=== PATIENT | male | born 1980 | race Caucasian/White ===

== ENCOUNTER 2020-10-08 08:37 | Outpatient (CLI) | payer BC | END 2020-10-08 08:38 | disposition home or self-care (01) | LOC: DTY/OP 08:37 | PROVIDERS: ATTEND Surgery | DX: E66.01 Morbid (severe) obesity due to excess calories (principal) | CPT/HCPCS: 97802 ==

== ENCOUNTER 2020-12-04 07:06 | Outpatient (CLI) | payer BC ==
[2020-12-04 08:14] LABS: #Basophils 0.1 10x3/uL (0.0-0.2); #Eosinphils 0.1 10x3/uL (0.0-0.5); #Monocytes 0.6 10x3/uL (0.0-1.1); #Neutrophils 4.1 10x3/uL (1.5-8.4); %Basophils 0.7 % (0.0-2.0); %Eosinophils 1.5 % (0.0-6.0); %Lymphocytes 33.5 % (18.0-47.0); %Monocytes 8.1 % (0.0-10.0); %Neutrophils 56.1 % (40.0-75.0); Hemoglobin 15.4 g/dL (13.5-17.5); Mean Corpuscular HGB CONC 34.1 g/dL (32.0-36.0); Mean Corpuscular Hemoglobin 28.9 pg (27.0-33.0); Mean Corpuscular Volume 84.8 fl (81.2-95.1); Mean Platelet Volume 10.3 fl (7.4-10.4); Platelet Count 291 10x3/uL (150-450); RBC Distribution Width 12.6 % (11.5-14.5); Red Blood Cell (RBC) Count 5.32 10x6/uL (4.32-5.72); White Blood Cell (WBC) Count 7.3 10x3/uL (3.5-10.5)
[2020-12-04 09:06] LABS: ALT (SGPT) 38 U/L (8-55); AST (SGOT) 28 U/L (5-34); Albumin 4.5 g/dL (3.5-5.0); Alkaline Phosphatase 69 U/L (40-110); Anion Gap 17 mmol/L (10-20); BUN (Urea Nitrogen) 18 mg/dL (8.9-20.6); Bilirubin, Total 0.8 mg/dL (0.2-1.2); Calc. Creatinine Clearance 0 mL/min (70-130); Calcium 9.8 mg/dL (7.8-10.44); Carbon Dioxide 23 mmol/L (22-29); Chloride 105 mmol/L (98-107); Globulin 2.8 g/dL (2.4-3.5); Glucose 93 mg/dL (70-105); Potassium 4.3 mmol/L (3.5-5.1); Protein, Total 7.3 g/dL (6.0-8.3); Sodium 141 mmol/L (136-145)
== END 2020-12-04 07:07 | disposition home or self-care (01) ==
LOC: LABBT 07:06
PROVIDERS: ATTEND Surgery
DX: Z01.818 Encounter for other preprocedural examination (principal); E66.01 Morbid (severe) obesity due to excess calories; Z20.822 Contact with and (suspected) exposure to COVID-19
CPT/HCPCS: 71046; 80053; 83036; 85025; 93005; 93010

== ENCOUNTER 2020-12-04 07:15 | Inpatient (IN) | payer BC ==
[2020-12-09] MEDS ORDERED: Heparin 5,000 UNITS/ML VIAL ONE (06:29)
[2020-12-09] MEDS ORDERED: SUGAMMADEX SODIUM 500 MG/5 ML VIAL ONE (06:31)
[2020-12-09] MEDS ORDERED: Fentanyl 250 MCG/5 ML VIAL ONE (06:31)
[2020-12-09] MEDS ORDERED: Lidocaine 1% w/Epinephrine 1:100K 20 ML VIAL ONE (06:33)
[2020-12-09] MEDS ORDERED: Bupivacaine 0.25% HCL 30 ML VIAL ONE (06:33)
[2020-12-09] MEDS ORDERED: PROPOFOL 20 ML ONE (07:08)
[2020-12-09] MEDS ORDERED: Dexamethasone 20 MG/5 ML VIAL ONE (07:36)
[2020-12-09] MEDS ORDERED: Ondansetron PF 4 MG/2 ML Vial ONE (07:36)
[2020-12-09] MEDS ORDERED: Ketorolac Tromethamine 30 MG/ML VIAL ONE (07:36)
[2020-12-09] MEDS ORDERED: Rocuronium Bromide 10 MG/ML (10ML VIAL) ONE (07:36)
[2020-12-09] MEDS ORDERED: Glycopyrrolate 0.2 MG/ML 5 ML SYRINGE ONE (07:36)
[2020-12-09] MEDS ORDERED: PROPOFOL 200 MG/20 ML VIAL ONE (07:36)
[2020-12-09] MEDS ORDERED: Lidocaine 1% PF 5 ML VIAL ONE (07:36)
[2020-12-09] MEDS ORDERED: Promethazine HCl 25 MG/ML VIAL SLOW IVP PRN (08:46)
[2020-12-09] MEDS ORDERED: Promethazine HCl 25 MG/ML VIAL IM PRN ×3 (08:46→09:14)
[2020-12-09] MEDS ORDERED: Meperidine HCl/PF 25 MG/ML VIAL SLOW IVP PRN (08:46)
[2020-12-09] MEDS ORDERED: Ondansetron HCl/PF 4 MG/2 ML Vial IVP PRN (08:46)
[2020-12-09] MEDS ORDERED: Ondansetron PF 4 MG/2 ML Vial IVP PRN (09:03)
[2020-12-09] MEDS ORDERED: Hydrocodone-Acetamin 15 ML UDCUP PO PRN (09:03)
[2020-12-09] MEDS ORDERED: Dextrose 50% Abboject 50 ML SYRINGE SLOW IVP PRN (09:03)
[2020-12-09] MEDS ORDERED: hydrALAZINE 20 MG/ML VIAL SLOW IVP PRN (09:03)
[2020-12-09] MEDS ORDERED: Dextrose 5% in Water 1,000 ML IV PRN (09:03)
[2020-12-09] MEDS ORDERED: diphenhydrAMINE 50 MG/ML VIAL IVP PRN ×2 (09:03→09:14)
[2020-12-09] MEDS ORDERED: diphenhydrAMINE 50 MG/ML VIAL IM PRN (09:14)
[2020-12-09] MEDS ORDERED: Zolpidem Tartrate 5 MG TAB PO PRN (09:14)
[2020-12-09] MEDS ORDERED: diphenhydrAMINE 25 MG CAP PO PRN (09:14)
[2020-12-09] MEDS ORDERED: Naloxone HCl 0.4 mg/ml Vial IV PRN (09:14)
[2020-12-09] MEDS ORDERED: fentaNYL Citrate/PF 2,000 MCG in Sodium Chloride 0.9% 60 ML IV PRN (09:14)
[2020-12-09] MEDS ORDERED: Communication Order-Pharmacy FS SCH (09:15)
[2020-12-09] MEDS ORDERED: Fentanyl 100 MCG/2 ML VIAL ONE ×2 (09:28→10:05)
[2020-12-09] MEDS ORDERED: HYDROmorphone 0.5 MG/0.5 ML SYRINGE ONE (10:05)
[2020-12-09] MEDS ORDERED: Labetalol HCl 100 MG/20 ML VIAL ONE (10:46)
[2020-12-09] MEDS: D5 1/2 NS w/20 mEq KCL 1,000 ML IV SCH ×2 (11:14→17:34)
[2020-12-09] MEDS: Ketorolac Tromethamine 30 MG/ML VIAL IVP SCH ×3 (11:14→23:41)
[2020-12-09 11:31] VITALS: BMI 39.2
[2020-12-09 13:18] LABS: Hemoglobin 15.8 g/dL (14.0-18.0)
[2020-12-09] MEDS: Ondansetron PF 4 MG/2 ML Vial IVP PRN ×2 (13:40→23:41)
[2020-12-09 15:23] LABS: Hemoglobin A1c 4.9 % (4.0-6.0)
[2020-12-09 15:42] LABS: Troponin I Less than 0.010 ng/mL (< 0.028)
[2020-12-09 21:44] LABS: Troponin I Less than 0.010 ng/mL (< 0.028)
[2020-12-10] MEDS: D5 1/2 NS w/20 mEq KCL 1,000 ML IV SCH ×3 (01:46→18:16)
[2020-12-10 03:59] LABS: Anion Gap 13 mmol/L (10-20); BUN (Urea Nitrogen) 15 mg/dL (8.9-20.6); Calc. Creatinine Clearance 152 mL/min (70-130); Calcium 8.5 mg/dL (7.8-10.44); Carbon Dioxide 22 mmol/L (22-29); Chloride 103 mmol/L (98-107); Glucose 205 mg/dL (70-105); Potassium 4.2 mmol/L (3.5-5.1); Sodium 134 mmol/L (136-145)
[2020-12-10 04:05] LABS: Troponin I 0.021 ng/mL (< 0.028)
[2020-12-10 04:24] LABS: Band 3 % (5-11); Hemoglobin 12.5 g/dL (14.0-18.0); Hypochromia SLIGHT = 6-15 cells (100X) (0-5/hpf); Lymphocytes 12 % (21-51); MDiff Complete? YES; Mean Corpuscular HGB CONC 35.4 g/dL (32.0-36.0); Mean Corpuscular Hemoglobin 31.1 pg (27.0-31.0); Mean Corpuscular Volume 87.8 fL (78.0-98.0); Mean Platelet Volume 8.2 fL (7.4-10.4); Monocytes 5 % (0-10); Neutrophil 79 % (42-75); Platelet Count 353 thou/uL (130-400); Platelet Morphology Comment Appears Adequate; RBC Distribution Width 12.3 % (11.5-14.5); Reactive Lymphocytes 1 % (0-10); Red Blood Cell (RBC) Count 4.01 mill/uL (4.70-6.10); White Blood Cell (WBC) Count 20.2 thou/uL (4.8-10.8)
[2020-12-10] MEDS: Ketorolac Tromethamine 30 MG/ML VIAL IVP SCH ×3 (05:43→18:06)
[2020-12-10] MEDS: Pantoprazole 40 MG VIAL IVP SCH (08:43)
[2020-12-10] MEDS ORDERED: Enoxaparin Sodium 40 MG/0.4 ML SYRINGE SC SCH (09:00)
[2020-12-10] MEDS ORDERED: Iopamidol-370 76% 500 ML 1 ML ONE (13:30)
[2020-12-10] MEDS ORDERED: Iopamidol 370 76% 50 ML VIAL FS ONE (13:30)
[2020-12-10 14:18] LABS: Hemoglobin 10.5 g/dL (14.0-18.0)
[2020-12-11 01:33] LABS: Hemoglobin 9.3 g/dL (14.0-18.0)
[2020-12-11] MEDS: Ketorolac Tromethamine 30 MG/ML VIAL IVP SCH ×2 (01:35→06:55)
[2020-12-11] MEDS: D5 1/2 NS w/20 mEq KCL 1,000 ML IV SCH (02:36)
[2020-12-11 08:39] VITALS: BP 111/70; TEMP 97.8
[2020-12-11] MEDS: Pantoprazole 40 MG VIAL IVP SCH (08:48)
[2020-12-11] MEDS ORDERED: Aspirin 81 mg Enteric Coated Tablet PO SCH (09:00)
[2020-12-11] MEDS ORDERED: Hydrocodone-Acetamin 15 ML UDCUP PO PRN (11:09)
== END 2020-12-11 11:46 | disposition home or self-care (01) | DRG 620 ==
LOC: SURG A 12-09 05:53
PROVIDERS: ADMIT Surgery; ATTEND Surgery
PROC: 0DB64ZZ Excision of Stomach, Percutaneous Endoscopic Approach (ICD-10-PCS; principal; 2020-12-09)
DX: E66.01 Morbid (severe) obesity due to excess calories (principal); K91.841 Postprocedural hemorrhage of a digestive system organ or structure following other procedure; K95.89 Other complications of other bariatric procedure; I10 Essential (primary) hypertension; K21.9 Gastro-esophageal reflux disease without esophagitis; R07.9 Chest pain, unspecified; Y83.8 Other surgical procedures as the cause of abnormal reaction of the patient, or of later complication, without mention of misadventure at the time of the procedure; Z79.899 Other long term (current) drug therapy; Z68.41 Body mass index [BMI] 40.0-44.9, adult
CPT/HCPCS: 36415; 71045; 71275; 74177; 80048; 80061; 83036; 84484; 85014; 85018; 85025; 86850; 86900; 86901; 88307; 93005; 93010; 93306; 94760; C9113; J0360; J0690; J1100; J1170; J1644; J1885; J2405; J2704; J3010; J3480; J3490; Q9967; S0020